=== PATIENT | male | born 1970 | race Caucasian/White ===

== ENCOUNTER 2020-11-13 22:30 | Emergency (ER) | payer BC ==
[~2020-11-13] VITALS: Ht 175.3 cm; Wt 120.2 kg
[~2020-11-13 22:30] MED LIST: HYDROCODONE-ACE15 ML PO; LISINOPRIL20 MG PO; MOBIC15 MG PO; PROZAC10 MG PO
[2020-11-14 01:59] LABS: ABSOLUTE BASOPHILS 0.1 thou/uL (0.0-0.2); ABSOLUTE LYMPHOCYTES 1.3 thou/uL (0.8-5.3); ABSOLUTE MONOCYTES 0.6 thou/uL (0.0-1.2); ABSOLUTE NEUTROPHILS 9.9 thou/uL (1.6-8.1); BASOPHILS 0.5 %; EOSINOPHILS 0.1 %; HEMATOCRIT 41.3 % (42.0-52.0); HEMOGLOBIN 14.2 gm/dL (14.0-18.0); LYMPHOCYTES 11.2 %; MCH 29.5 pg (26.0-34.0); MCHC 34.2 g/dL (28.0-37.0); MONOCYTES 5.2 %; MPV 7.5 fl. (7.2-11.1); NUCLEATED RBCS 0 /100WBC; PLATELET COUNT* 298 thou/uL (150-400); RBC 4.81 mil/uL (4.50-6.00)
[2020-11-14 02:04] LABS: CALCIUM 8.8 mg/dL (8.5-10.1); POTASSIUM 3.6 mmol/L (3.5-5.1)
[2020-11-14 02:09] LABS: ALBUMIN 3.8 g/dL (3.4-5.0); TOTAL BILIRUBIN 0.4 mg/dL (<0.1-1.0); TOTAL PROTEIN 7.4 g/dL (6.4-8.2)
[2020-11-14 02:15] LABS: SALICYLATE < 2.8 mg/dL (2.8-20.0)
[2020-11-14 02:20] LABS: ACETAMINOPHEN < 2 ug/mL (10-30)
[2020-11-14 03:09] LABS: URINE BLOOD NEGATIVE (Negative); URINE CLARITY CLEAR; URINE COLOR YELLOW; URINE GLUCOSE-RANDOM NEGATIVE (Negative); URINE KETONES TRACE (Negative); URINE LEUKOCYTES-REFLEX NEGATIVE (Negative); URINE NITRITE-REFLEX NEGATIVE (Negative); URINE PROTEIN NEGATIVE (Negative); URINE SPECIFIC GRAVITY 1.025 (1.005-1.030); URINE UROBILINOGEN 0.2 E.U./dl (0.2-1.0)
[2020-11-14 03:11] LABS: URINE BILIRUBIN 2+ (Negative)
[2020-11-14 03:12] LABS: ICTOTEST (BILI CONFIRMATORY) Negative (Negative)
[2020-11-14 03:44] LABS: AMP/METHAMP Negative (Negative); BARBITURATES Negative (Negative); BENZODIAZEPINES Negative (Negative); COCAINE Negative (Negative); METHADONE Negative (Negative); OPIATES POSITIVE (Negative); PCP Negative (Negative); THC POSITIVE (Negative)
[2020-11-14] MEDS ORDERED: WIXELA (07:12)
[2020-11-14] MEDS ORDERED: HYDROCODON-ACE1 EAC5 PO (07:13)
[2020-11-14] MEDS ORDERED: LEXAPRO 10 MG T10 M2 PO (07:13)
[2020-11-14] MEDS ORDERED: LISINOPRIL20 MG (07:14)
[2020-11-14] MEDS ORDERED: PROTONIX40 M2 PO (07:15)
[2020-11-14] MEDS ORDERED: ADIPEX-P37.5 MG PO (07:15)
[2020-11-14] MEDS ORDERED: NORVASC10 MG PO (07:15)
[2020-11-14] MEDS ORDERED: ETODOLAC 400 M400 M1 (07:15)
[2020-11-14] MEDS ORDERED: CLONAZEPAM 0.50.5 M1 PO (07:16)
[2020-11-14 08:37] VITALS: BP 146/88
== END 2020-11-14 08:37 ==
LOC: M.ERS 22:30 → EDBD 22:30 → M.ERS 11-14 08:37
PROVIDERS: Emergency Medicine
DX: S00.81XA Abrasion of other part of head, initial encounter (principal); Z20.822 Contact with and (suspected) exposure to COVID-19; M25.511 Pain in right shoulder; I10 Essential (primary) hypertension; Z90.49 Acquired absence of other specified parts of digestive tract; Z79.899 Other long term (current) drug therapy; Y93.89 Activity, other specified; Y92.89 Other specified places as the place of occurrence of the external cause; Y99.8 Other external cause status